=== PATIENT | female | born 1965 | race Caucasian/White ===

== ENCOUNTER 2023-02-16 11:07 | Emergency (ER) | payer OTHER ==
[~2023-02-16] VITALS: Ht 167.6 cm; Wt 70.0 kg
[2023-02-16 11:09] VITALS: O2SAT 97
[2023-02-16] MEDS ORDERED: HYDROCODONE/ACETAMINOPHEN 10/325MG TABLET PO ONE (14:30)
[2023-02-16] MEDS ORDERED: LIDO700A30 TP (14:55)
[2023-02-16] MEDS ORDERED: IBUP-2029 MT (14:55)
[2023-02-16 15:33] VITALS: BP 137/71; PULSE 72; RESP 14; TEMP 98.4
== END 2023-02-16 15:35 | disposition home or self-care (01) ==
LOC: EDSEX 11:07 → ER 11:07
DX: S06.0X0A Concussion without loss of consciousness, initial encounter (principal); M54.9 Dorsalgia, unspecified; W18.30XA Fall on same level, unspecified, initial encounter; Y93.89 Activity, other specified; Y92.89 Other specified places as the place of occurrence of the external cause; Y99.8 Other external cause status
CPT/HCPCS: 72070; 72100; 72170; 99284